=== PATIENT | female | born 1990 | race African-American/Black ===

== ENCOUNTER 2016-12-11 13:36 | Inpatient (IN) | payer MEDICAID ==
[~2016-12-11] VITALS: Ht 170.2 cm; Wt 122.0 kg
[2016-12-11] MEDS ORDERED: NALOXONE HCL 0.4 MG/ML 1ML VIAL IM PRN (14:00)
[2016-12-11] MEDS ORDERED: PENICILLIN G POTASSIUM 5 MMU in DEXT 5% WATER 100 ML IV SCH (14:00)
[2016-12-11] MEDS ORDERED: CARBOPROST TROMETHAMINE 250 MCG/ML AMPUL IM PRN (14:00)
[2016-12-11] MEDS ORDERED: LIDOCAINE HCL 1% 20ML VIAL (Pyxis) INJ INFIL SCH (14:00)
[2016-12-11] MEDS ORDERED: METHYLERGONOVINE MALEATE 0.2 MG/ML IM PRN (14:00)
[2016-12-11 14:28] LABS: CLARITY URINE TURBID (CLEAR); COLOR URINE YELLOW (YELLOW); GLUCOSE URINE NEGATIVE (NEGATIVE); KETONES URINE NEGATIVE (NEGATIVE); LEUKOCYTE ESTERASE URINE TRACE (NEGATIVE); NITRITE URINE NEGATIVE (NEGATIVE); OCCULT BLOOD URINE NEGATIVE (NEGATIVE); PROTEIN URINE NEGATIVE (NEGATIVE)
[2016-12-11 15:01] LABS: BASOPHILS % 0.7 % (0.0-2.0); EOSINOPHILS % 0.5 % (0.0-5.0); HEMATOCRIT. 33.5 % (36.0-48.0); HEMOGLOBIN. 11.1 g/dL (12.0-16.0); LYMPHOCYTES % 19.1 % (20.0-50.0); MEAN CORPUSCULAR HEMOGLOBIN 28.1 pg (28.0-32.0); MEAN CORPUSCULAR VOLUME 84.8 fL (81.0-99.0); MEAN PLATELET VOLUME 7.5 fl (7.4-10.4); MONOCYTES % 6.4 % (2.0-8.0); NEUTROPHILS % 73.3 % (40.0-76.0); PLATELET 295 x1000/uL (130-400); RED BLOOD CELL COUNT 3.94 mill/uL (4.2-5.4); RED CELL DISTRIBUTION WIDTH 13.6 % (11.6-14.6)
[2016-12-11 15:08] LABS: PARTIAL THROMBOPLASTIN TIME 26.8 sec (24.0-34.0); PROTHROMBIN TIME 10.6 sec
[2016-12-11] MEDS: BUTORPHANOL TARTRATE 2 MG/ML VIAL IV PRN ×2 (15:10→17:42)
[2016-12-11 15:15] LABS: *AMPHETAMINES SCREEN URINE NEGATIVE (NEGATIVE); *BARBITURATES SCREEN URINE NEGATIVE (NEGATIVE); *BENZODIAZEPINES SCREEN URINE NEGATIVE (NEGATIVE); *COCAINE SCREEN URINE NEGATIVE (NEGATIVE); CANNABINOID URINE SCREEN NEGATIVE (NEGATIVE); METHADONE URINE SCREEN NEGATIVE (NEGATIVE); OPIATES URINE SCREEN NEGATIVE (NEGATIVE); PHENCYCLIDINE URINE SCREEN NEGATIVE (NEGATIVE)
[2016-12-11 15:38] LABS: RUBELLA IGG 83.3 IU/mL (4.99-10)
[2016-12-11 15:39] LABS: HEPATITIS B SURFACE ANTIGEN NEGATIVE
[2016-12-11] MEDS: LACTATED RINGERS 1,000 ML IV SCH ×2 (16:09→22:14)
[2016-12-11] MEDS ORDERED: CLINDAMYCIN 900 MG in DEXTROSE 5% WATER 50 ML IV SCH (17:00)
[2016-12-11] MEDS ORDERED: PENICILLIN G POTASSIUM 2.5 MMU in DEXTROSE 5% WATER 50 ML IV SCH (18:00)
[2016-12-11] MEDS ORDERED: DEXT 5%/LR + PITOCIN 20UNITS/L 1,000 ML IV SCH (21:37)
[2016-12-11] MEDS ORDERED: BUPIVACAINE HCL/NS/PF EPIDURAL 100 ML EP ONE (23:58)
[2016-12-11] MEDS ORDERED: BUPIVACAINE HCL/PF 0.25% (2.5MG/ML) 10ML ONE (23:59)
[2016-12-11] MEDS ORDERED: FENTANYL CITRATE/PF 50MCG/ML 2ML VIAL ONE (23:59)
[2016-12-12] MEDS ORDERED: FENTANYL CITRATE/PF 50MCG/ML 2ML VIAL ONE (00:01)
[2016-12-12] MEDS ORDERED: ONDANSETRON HCL 4MG/2ML VIAL IV PRN ×2 (00:45→05:15)
[2016-12-12] MEDS ORDERED: BUPIVACAINE HCL/NS/PF EPIDURAL 100 ML EP SCH (00:45)
[2016-12-12] MEDS ORDERED: METOCLOPRAMIDE HCL 10MG/2ML VIAL ONE (03:50)
[2016-12-12] MEDS ORDERED: MORPHINE SULFATE/PF 1MG/ML 10ML AMP ONE (03:50)
[2016-12-12] MEDS ORDERED: KETAMINE HCL 50 MG/ML 10ML ONE (03:50)
[2016-12-12] MEDS ORDERED: OXYTOCIN 10 UNITS/ML 1ML ONE (03:50)
[2016-12-12] MEDS ORDERED: MIDAZOLAM HCL 2 MG/2 ML VIAL ONE (03:50)
[2016-12-12] MEDS ORDERED: LIDOCAINE HCL 2% 5ML SYRINGE IV ONE (03:50)
[2016-12-12] MEDS ORDERED: ONDANSETRON HCL 4MG/2ML VIAL ONE (03:50)
[2016-12-12] MEDS ORDERED: DIPHENHYDRAMINE 50MG/ML VIAL ONE ×2 (03:50→16:30)
[2016-12-12] MEDS ORDERED: DEXT 5%/LR + PITOCIN 20UNITS/L 1,000 ML IV SCH (05:08)
[2016-12-12] MEDS ORDERED: IBUPROFEN 400MG TABLET PO PRN (05:15)
[2016-12-12] MEDS ORDERED: RHO(D) IMMUNE GLOBULIN 300 MCG/SYR IM PRN (05:15)
[2016-12-12] MEDS ORDERED: LANOLIN OINT 0.25 GM TUBE TOP PRN (05:15)
[2016-12-12] MEDS ORDERED: HYDROCODONE/ACETAMINOPHEN 5/325MG TABLET PO PRN ×2 (05:15)
[2016-12-12] MEDS ORDERED: DIPHENHYDRAMINE 50MG/ML VIAL IV PRN (05:45)
[2016-12-12 07:30] VITALS: BP 131/76
[2016-12-12 08:45] VITALS: BP 120/70
[2016-12-12] MEDS: PRENATAL VIT/FE FUMARATE/FA TABLET PO SCH (09:00)
[2016-12-12 09:20] VITALS: BP 107/62
[2016-12-12 12:00] VITALS: BP 113/66
[2016-12-12] MEDS ORDERED: KETOROLAC 30MG/ML VIAL ONE (16:31)
[2016-12-12 16:44] VITALS: BP 123/62
[2016-12-12] MEDS: KETOROLAC 30MG/ML VIAL IV PRN (19:05)
[2016-12-12 19:30] VITALS: BP 114/47
[2016-12-13] MEDS: KETOROLAC 30MG/ML VIAL IV PRN (01:10)
[2016-12-13 05:04] VITALS: BP 116/68
[2016-12-13 06:40] LABS: BASOPHILS % 0.3 % (0.0-2.0); EOSINOPHILS % 0.8 % (0.0-5.0); HEMATOCRIT. 26.1 % (36.0-48.0); HEMOGLOBIN. 8.7 g/dL (12.0-16.0); LYMPHOCYTES % 14.2 % (20.0-50.0); MEAN CORPUSCULAR HEMOGLOBIN 28.4 pg (28.0-32.0); MEAN CORPUSCULAR VOLUME 85.4 fL (81.0-99.0); MEAN PLATELET VOLUME 7.5 fl (7.4-10.4); MONOCYTES % 8.6 % (2.0-8.0); NEUTROPHILS % 76.1 % (40.0-76.0); PLATELET 254 x1000/uL (130-400); RED BLOOD CELL COUNT 3.06 mill/uL (4.2-5.4); RED CELL DISTRIBUTION WIDTH 13.5 % (11.6-14.6)
[2016-12-13 07:37] VITALS: BP 121/78
[2016-12-13] MEDS: IBUPROFEN 800MG TABLET PO PRN ×2 (11:35→20:55)
[2016-12-13] MEDS: PRENATAL VIT/FE FUMARATE/FA TABLET PO SCH (11:35)
[2016-12-13 16:14] VITALS: BP 101/62
[2016-12-13 20:35] VITALS: BP 116/75
[2016-12-13] MEDS: DOCUSATE SODIUM 100MG CAPSULE PO SCH (20:55)
[2016-12-13] MEDS: SIMETHICONE 80MG TABLET CHEW PO SCH (23:34)
[2016-12-14] VITALS: BP 121/64
[2016-12-14] MEDS: IBUPROFEN 800MG TABLET PO PRN ×2 (06:04→17:57)
[2016-12-14 06:26] VITALS: BP 114/56
[2016-12-14 08:39] VITALS: BP 127/69
[2016-12-14] MEDS: SIMETHICONE 80MG TABLET CHEW PO SCH ×3 (09:01→21:19)
[2016-12-14] MEDS: PRENATAL VIT/FE FUMARATE/FA TABLET PO SCH (09:01)
[2016-12-14 16:45] VITALS: BP 107/63
[2016-12-14 20:00] VITALS: BP 120/54
[2016-12-14] MEDS: DOCUSATE SODIUM 100MG CAPSULE PO SCH (21:19)
[2016-12-15 05:15] VITALS: BP 125/69
[2016-12-15] MEDS: IBUPROFEN 800MG TABLET PO PRN ×2 (05:21→12:23)
[2016-12-15 08:06] VITALS: BP 119/77
[2016-12-15 12:23] VITALS: BP 119/77
== END 2016-12-15 14:30 | disposition home or self-care (01) | DRG 540 ==
LOC: OBSVTOIN 13:36 → L&D 13:36 → UNDODISOB 22:20 → 7EST PP/OB 12-12 12:21
PROVIDERS: ADMIT Obstetrics & Gynecology; ATTEND Obstetrics & Gynecology
PROC: 10D00Z1 Extraction of Products of Conception, Low, Open Approach (ICD-10-PCS; principal; 2016-12-12)
DX: O76 Abnormality in fetal heart rate and rhythm complicating labor and delivery (principal); D62 Acute posthemorrhagic anemia; O99.344 Other mental disorders complicating childbirth; O62.2 Other uterine inertia; F41.0 Panic disorder [episodic paroxysmal anxiety]; O69.81X0 Labor and delivery complicated by cord around neck, without compression, not applicable or unspecified; O99.02 Anemia complicating childbirth; Z3A.39 39 weeks gestation of pregnancy; Z37.0 Single live birth
CPT/HCPCS: 36415; 80305; 81001; 85025; 85610; 85730; 86592; 86703; 86762; 86850; 86900; 87340; 88307; J0595; J1200; J1885; J2250; J2274; J2405; J2540; J2590; J2765; J3010; J3490; J7060; J7120; A4315